=== PATIENT | male | born 1960 | race Caucasian/White ===

== ENCOUNTER 2017-10-01 10:04 | Outpatient (CLI) | payer OTHER ==
[2017-10-01 10:29] LABS: BASOPHILS % (AUTO) 0.3 % (0-1); EOSINOPHILS # (AUTO) 0.6 X10'3 (0-0.9); EOSINOPHILS % (AUTO) 6.5 % (0-6); HEMATOCRIT 46.3 % (42.0-52.0); HEMOGLOBIN 16.1 g/dl (14.0-17.9); LYMPHOCYTES % (AUTO) 24.3 % (21-51); MEAN CORPUSCULAR HEMOGLOBIN 32.3 PG (27.0-31.0); MEAN CORPUSCULAR HGB CONC 34.8 % (33.0-36.5); MEAN CORPUSCULAR VOLUME 92.9 FL (78-98); MEAN PLATELET VOLUME 7.2 FL (7.4-10.4); MONOCYTES # (AUTO) 0.7 X10'3 (0-0.9); MONOCYTES % (AUTO) 8.7 % (2-12); NEUTROPHILS # (AUTO) 5.1 X10'3 (1.8-7.7); NEUTROPHILS % (AUTO) 60.2 % (42-75); PLATELET COUNT 305 X10'3 (140-440); RED BLOOD COUNT 4.98 X10'6 (4.70-6.10); RED CELL DISTRIBUTION WIDTH 12.5 % (11.5-14.5); WHITE BLOOD COUNT 8.4 X10'3 (4.5-11.0)
[2017-10-01 10:42] LABS: ANION GAP 9 (8-16); BILIRUBIN,TOTAL 0.6 MG/DL (0.1-1.0); BLOOD UREA NITROGEN 24 MG/DL (7-18); BUN/CREATININE RATIO 21.2 (5.4-32.0); CALCIUM 9.7 MG/DL (8.5-10.1); CHLORIDE 103 MMOL/L (99-107); CREATININE 1.13 MG/DL (0.60-1.10); GLUCOSE 109 MG/DL (70-104); POTASSIUM 4.5 MMOL/L (3.5-5.1); SODIUM 141 MMOL/L (135-145); eGFR 67 ML/MIN
[2017-10-01 10:43] LABS: ALANINE AMINOTRANSFERASE 63 U/L (12-78); ALBUMIN 4.3 G/DL (3.4-5.0); ALBUMIN/GLOBULIN RATIO 1.2 (1.1-1.5); ALKALINE PHOSPHATASE 55 IU/L (46-116); ASPARTATE AMINO TRANSFERASE 27 U/L (10-37); CHOL/HDL RATIO 3.9 (0.00-4.99); CHOLESTEROL 177 MG/DL (0-200); HDL CHOLESTEROL 45 MG/DL (35-60); LDL CHOLESTEROL 115 MG/DL (50-100); TOTAL PROTEIN 7.9 G/DL (6.4-8.2); TRIGLYCERIDES 67 MG/DL (20-135)
== END 2017-10-01 23:59 | disposition home or self-care (01) ==
LOC: LAB 10:04
DX: Z00.01 Encounter for general adult medical examination with abnormal findings (principal); Z12.5 Encounter for screening for malignant neoplasm of prostate; E78.5 Hyperlipidemia, unspecified
CPT/HCPCS: 36415; 80053; 80061; 84153; 85025

== ENCOUNTER 2019-08-12 15:06 | Outpatient (CLI) | payer OTHER ==
[2019-08-12 15:40] LABS: BASOPHILS % (AUTO) 0.6 % (0-1); EOSINOPHILS # (AUTO) 0.4 X10'3 (0-0.9); EOSINOPHILS % (AUTO) 5.2 % (0-6); HEMATOCRIT 41.5 % (42.0-52.0); HEMOGLOBIN 14.7 g/dl (14.0-17.9); LYMPHOCYTES # (AUTO) 2.2 X10'3 (1.1-4.8); LYMPHOCYTES % (AUTO) 29.8 % (21-51); MEAN CORPUSCULAR HEMOGLOBIN 32.8 PG (27.0-31.0); MEAN CORPUSCULAR HGB CONC 35.5 g/dL (33.0-36.5); MEAN CORPUSCULAR VOLUME 92.5 FL (78-98); MEAN PLATELET VOLUME 7.7 FL (7.4-10.4); MONOCYTES # (AUTO) 0.8 X10'3 (0-0.9); MONOCYTES % (AUTO) 10.3 % (2-12); NEUTROPHILS % (AUTO) 54.1 % (42-75); PLATELET COUNT 255 X10'3 (140-440); RED BLOOD COUNT 4.49 X10'6 (4.70-6.10); WHITE BLOOD COUNT 7.3 X10'3 (4.5-11.0)
[2019-08-12 15:49] LABS: ALANINE AMINOTRANSFERASE 65 U/L (12-78); ALBUMIN 3.9 G/DL (3.4-5.0); ALBUMIN/GLOBULIN RATIO 1.3 (1.1-1.5); ALKALINE PHOSPHATASE 52 IU/L (46-116); ANION GAP 5 (8-16); ASPARTATE AMINO TRANSFERASE 53 U/L (10-37); BILIRUBIN,TOTAL 0.7 MG/DL (0.1-1.0); BLOOD UREA NITROGEN 20 MG/DL (7-18); BUN/CREATININE RATIO 19.4 (5.4-32.0); CALCIUM 8.7 MG/DL (8.5-10.1); CHLORIDE 104 MMOL/L (99-107); CHOL/HDL RATIO 4.2 (0.00-4.99); CHOLESTEROL 171 MG/DL (0-200); CREATININE 1.03 MG/DL (0.60-1.10); GLUCOSE 99 MG/DL (70-104); HDL CHOLESTEROL 41 MG/DL (35-60); LDL CHOLESTEROL 119 MG/DL (50-100); POTASSIUM 4.1 MMOL/L (3.5-5.1); SODIUM 138 MMOL/L (135-145); TOTAL CARBON DIOXIDE 29.5 MMOL/L (24-32); TOTAL PROTEIN 6.9 G/DL (6.4-8.2); TRIGLYCERIDES 66 MG/DL (20-135); eGFR 75 ML/MIN
== END 2019-08-12 23:59 | disposition home or self-care (01) ==
LOC: LAB 15:06
DX: Z12.5 Encounter for screening for malignant neoplasm of prostate (principal); Z00.00 Encounter for general adult medical examination without abnormal findings
CPT/HCPCS: 36415; 80053; 80061; 84153; 85025

== ENCOUNTER 2019-09-28 08:57 | Outpatient (CLI) | payer OTHER ==
[2019-09-28 11:51] LABS: CHOL/HDL RATIO 3.5 (0.00-4.99); CHOLESTEROL 160 MG/DL (0-200); HDL CHOLESTEROL 46 MG/DL (35-60); LDL CHOLESTEROL 106 MG/DL (50-100); TRIGLYCERIDES 64 MG/DL (20-135)
== END 2019-09-28 23:59 | disposition home or self-care (01) ==
LOC: LAB 08:57
DX: E78.5 Hyperlipidemia, unspecified (principal)
CPT/HCPCS: 36415; 80061

== ENCOUNTER 2020-06-23 18:45 | Emergency (ER) | payer OTHER ==
[~2020-06-23] VITALS: Ht 177.8 cm; Wt 88.6 kg
[2020-06-23 19:03] VITALS: BP 149/100
== END 2020-06-23 19:20 | disposition home or self-care (01) ==
LOC: ER 18:46
DX: S60.812A Abrasion of left wrist, initial encounter (principal); X58.XXXA Exposure to other specified factors, initial encounter; Y93.89 Activity, other specified; Y92.89 Other specified places as the place of occurrence of the external cause; Y99.8 Other external cause status
CPT/HCPCS: 99281

== ENCOUNTER 2020-10-01 12:23 | Emergency (ER) | payer OTHER ==
[~2020-10-01] VITALS: Ht 177.8 cm; Wt 90.0 kg
[~2020-10-01 12:23] MED LIST: LIDOcaine 1% 30ml preserv. free vial ONE
[2020-10-01 12:28] VITALS: BP 144/96
== END 2020-10-01 14:19 | disposition home or self-care (01) ==
LOC: ER 12:23
DX: S62.291A Other fracture of first metacarpal bone, right hand, initial encounter for closed fracture (principal); Y04.0XXA Assault by unarmed brawl or fight, initial encounter; Y93.89 Activity, other specified; Y92.89 Other specified places as the place of occurrence of the external cause; Y99.9 Unspecified external cause status
CPT/HCPCS: 26605; 73120; 73130; 99284; J2001

== ENCOUNTER 2020-10-02 16:10 | Outpatient (CLI) | payer BC ==
[2020-10-02 17:06] LABS: BASOPHILS % (AUTO) 0.4 % (0-1); EOSINOPHILS # (AUTO) 0.2 X10'3 (0-0.9); EOSINOPHILS % (AUTO) 2.4 % (0-6); HEMATOCRIT 46.9 % (42.0-52.0); LYMPHOCYTES # (AUTO) 2.1 X10'3 (1.1-4.8); LYMPHOCYTES % (AUTO) 25.6 % (21-51); MEAN CORPUSCULAR HEMOGLOBIN 32.2 PG (27.0-31.0); MEAN CORPUSCULAR HGB CONC 34.1 g/dL (33.0-36.5); MEAN CORPUSCULAR VOLUME 94.2 FL (78-98); MEAN PLATELET VOLUME 8.2 FL (7.4-10.4); MONOCYTES # (AUTO) 0.7 X10'3 (0-0.9); MONOCYTES % (AUTO) 9.3 % (2-12); NEUTROPHILS % (AUTO) 62.3 % (42-75); PLATELET COUNT 306 X10'3 (140-440); RED BLOOD COUNT 4.98 X10'6 (4.70-6.10); RED CELL DISTRIBUTION WIDTH 12.9 % (11.5-14.5); WHITE BLOOD COUNT 8.1 X10'3 (4.5-11.0)
[2020-10-02 17:26] LABS: ALANINE AMINOTRANSFERASE 46 U/L (12-78); ALBUMIN 4.3 G/DL (3.4-5.0); ALBUMIN/GLOBULIN RATIO 1.2 (1.1-1.5); ALKALINE PHOSPHATASE 57 IU/L (46-116); ANION GAP 12 (8-16); ASPARTATE AMINO TRANSFERASE 26 U/L (10-37); BILIRUBIN,TOTAL 0.7 MG/DL (0.1-1.0); BLOOD UREA NITROGEN 20 MG/DL (7-18); BUN/CREATININE RATIO 20.8 (5.4-32.0); CALCIUM 9.7 MG/DL (8.5-10.1); CHLORIDE 103 MMOL/L (99-107); CHOLESTEROL 149 MG/DL (0-200); CREATININE 0.96 MG/DL (0.60-1.10); GLUCOSE 86 MG/DL (70-104); HDL CHOLESTEROL 50 MG/DL (35-60); LDL CHOLESTEROL 92 MG/DL (50-100); SODIUM 140 MMOL/L (135-145); TOTAL CARBON DIOXIDE 24.7 MMOL/L (24-32); TOTAL PROTEIN 7.8 G/DL (6.4-8.2); TRIGLYCERIDES 80 MG/DL (20-135); eGFR 80 ML/MIN
[2020-10-04 08:35] LABS: PSA, FREE 0.3 ng/mL
== END 2020-10-02 23:59 | disposition home or self-care (01) ==
LOC: LAB 16:10
PROVIDERS: ATTEND Family Medicine
DX: E78.5 Hyperlipidemia, unspecified (principal); D64.9 Anemia, unspecified; E07.9 Disorder of thyroid, unspecified; R53.83 Other fatigue; R97.20 Elevated prostate specific antigen [PSA]
CPT/HCPCS: 36415; 80053; 80061; 84153; 84154; 84439; 84443; 85025

== ENCOUNTER 2020-11-01 09:48 | Outpatient (CLI) | payer OTHER | END 2020-11-01 23:59 | disposition home or self-care (01) | LOC: RAD 09:48 | PROVIDERS: ATTEND Orthopaedic Surgery | DX: S63.041A Subluxation of carpometacarpal joint of right thumb, initial encounter (principal); S62.231D Other displaced fracture of base of first metacarpal bone, right hand, subsequent encounter for fracture with routine healing; X58.XXXD Exposure to other specified factors, subsequent encounter; X58.XXXA Exposure to other specified factors, initial encounter; Y93.9 Activity, unspecified; Y92.89 Other specified places as the place of occurrence of the external cause; Y99.8 Other external cause status | CPT/HCPCS: 73140 ==

== ENCOUNTER → 2020-12-21 | Outpatient (CLI) | payer BC | END | disposition home or self-care (01) | LOC: RAD 09:27 | PROVIDERS: ATTEND Family Medicine | DX: M19.041 Primary osteoarthritis, right hand (principal); M79.89 Other specified soft tissue disorders | CPT/HCPCS: 73130 ==

== ENCOUNTER 2023-05-06 09:12 | Outpatient (CLI) | payer BC ==
[2023-05-06 09:47] LABS: BASOPHILS % (AUTO) 0.5 % (0-1); EOSINOPHILS # (AUTO) 0.4 X10'3 (0-0.9); EOSINOPHILS % (AUTO) 4.3 % (0-6); HEMATOCRIT 45.7 % (42.0-52.0); HEMOGLOBIN 15.7 g/dl (14.0-17.9); LYMPHOCYTES # (AUTO) 1.9 X10'3 (1.1-4.8); LYMPHOCYTES % (AUTO) 23.1 % (21-51); MEAN CORPUSCULAR HEMOGLOBIN 32.8 PG (27.0-31.0); MEAN CORPUSCULAR HGB CONC 34.3 g/dL (33.0-36.5); MEAN CORPUSCULAR VOLUME 95.5 FL (78-98); MEAN PLATELET VOLUME 7.7 FL (7.4-10.4); MONOCYTES # (AUTO) 0.6 X10'3 (0-0.9); MONOCYTES % (AUTO) 7.8 % (2-12); NEUTROPHILS # (AUTO) 5.3 X10'3 (1.8-7.7); NEUTROPHILS % (AUTO) 64.3 % (42-75); PLATELET COUNT 252 X10'3 (140-440); RED BLOOD COUNT 4.79 X10'6 (4.70-6.10); RED CELL DISTRIBUTION WIDTH 12.6 % (11.5-14.5); WHITE BLOOD COUNT 8.3 X10'3 (4.5-11.0)
[2023-05-06 10:01] LABS: ALANINE AMINOTRANSFERASE 41 U/L (12-78); ALBUMIN 3.9 G/DL (3.4-5.0); ALBUMIN/GLOBULIN RATIO 1.2 (1.1-1.5); ALKALINE PHOSPHATASE 56 IU/L (46-116); ANION GAP 11 (8-16); ASPARTATE AMINO TRANSFERASE 29 U/L (10-37); BILIRUBIN,TOTAL 0.6 MG/DL (0.1-1.0); BLOOD UREA NITROGEN 15 MG/DL (7-18); BUN/CREATININE RATIO 16.5 (10.0-20.0); CALCIUM 9.1 MG/DL (8.5-10.1); CHLORIDE 101 MMOL/L (99-107); CHOL/HDL RATIO 3.1 (0.00-4.99); CHOLESTEROL 139 MG/DL (0-200); CREATININE 0.91 MG/DL (0.60-1.10); GLUCOSE 116 MG/DL (70-104); HDL CHOLESTEROL 45 MG/DL (35-60); LDL CHOLESTEROL 77 MG/DL (50-100); SODIUM 136 MMOL/L (135-145); TOTAL CARBON DIOXIDE 24.5 MMOL/L (24-32); TOTAL PROTEIN 7.1 G/DL (6.4-8.2); TRIGLYCERIDES 62 MG/DL (20-135); eGFR 85 ML/MIN
== END 2023-05-06 23:59 | disposition home or self-care (01) ==
LOC: LAB 09:12
PROVIDERS: ATTEND Physician Assistant
DX: Z00.01 Encounter for general adult medical examination with abnormal findings (principal); I10 Essential (primary) hypertension; E78.5 Hyperlipidemia, unspecified; N40.1 Benign prostatic hyperplasia with lower urinary tract symptoms
CPT/HCPCS: 36415; 80053; 80061; 84153; 85025

== ENCOUNTER 2023-09-18 08:27 | Emergency (ER) | payer BC ==
[~2023-09-18] VITALS: Ht 170.2 cm; Wt 84.3 kg
[2023-09-18 08:29] VITALS: BP 138/85; PULSE 72; RESP 16; TEMP 98.6; O2SAT 98
[2023-09-18] MEDS ORDERED: CIPR2.5D21 EACHEYE (09:00)
[2023-09-18] MEDS: ciprofloxacin 0.3% 2.5ml ophthalmic solution EACHEYE ONE (09:28)
== END 2023-09-18 09:33 | disposition home or self-care (01) ==
LOC: ER 08:28
DX: H10.023 Other mucopurulent conjunctivitis, bilateral (principal); Z79.2 Long term (current) use of antibiotics
CPT/HCPCS: 99283

== ENCOUNTER 2023-09-28 08:28 | Emergency (ER) | payer BC ==
[~2023-09-28] VITALS: Ht 177.8 cm; Wt 66.9 kg
[2023-09-28 08:30] VITALS: BP 135/86; PULSE 75; RESP 18; TEMP 97.8; O2SAT 98
== END 2023-09-28 11:35 | disposition home or self-care (01) ==
LOC: ER 08:29
DX: H69.82 Other specified disorders of Eustachian tube, left ear (principal); Z79.2 Long term (current) use of antibiotics; Z79.899 Other long term (current) drug therapy
CPT/HCPCS: 99282

== ENCOUNTER 2023-10-22 15:12 | Emergency (ER) | payer BC ==
[~2023-10-22] VITALS: Ht 170.2 cm; Wt 82.0 kg
[2023-10-22 15:32] VITALS: BP 129/72; PULSE 75; RESP 20; TEMP 97.8; O2SAT 95
[2023-10-22] MEDS: mineral oil 10ml sterile, topical TP ONE (16:35)
== END 2023-10-22 17:27 | disposition home or self-care (01) ==
LOC: ER 15:13
DX: H61.23 Impacted cerumen, bilateral (principal)
CPT/HCPCS: 99282; 99283

== ENCOUNTER 2025-02-25 10:04 | Emergency (ER) | payer BC ==
[~2025-02-25] VITALS: Ht 170.2 cm; Wt 86.8 kg
[2025-02-25 10:08] VITALS: BP 143/99; PULSE 79; RESP 16; TEMP 97.7; O2SAT 98
--- NOTE | 2025-02-25 10:39 | Physician Documentation ---
History of Present Illness ~ Chief Complaint: Toe pain Stated Complaint: GLASS IN TOE Time Seen by MD: 10:23 OK to notify your PCP?: Yes Primary Medical Doctor: Dr. Jacobo Winters Source: patient Mode of Arrival: POV Exam Limitations: no limitations HPI 64-year-old male with chief complaint pain on the plantar surface of his distal 3rd toe which started a few days ago. He states he believes that there is glass in the toe as he was working on some glass in his garage about a week ago and has been cleaning it up over the past week and states that they are small glass shards on the floor in his garage that easily could have gotten in his toe. He states the pain is worse with any direct pressure to the area. Last tetanus was within last 10years. Tetanus witin 5 years: Yes Medication Reconciliation Allergies: Coded Allergies: No Known Allergies (Unverified , 02/25/25) Past Medical History Past Medical History: No Pertinent History Past Surgical History: noncontributory Drug Use: none Lives In: Home Occupation: employed Review of Systems All Other Systems at this time: Reviewed and Negative Physical Exam Vital Signs: Temperature: 97.7, Source: Temporal, Heart Rate: 79, Respiratory Rate: 16, BP: 143/99, Pulse Oximetry: 98, Weight: 86.750 Oxygen Flow Rate: 0 Physical Exam General Appearance: Alert, WD/WN. NAD. HEENT: NCAT, PERRL, EOMI. Neck: Supple, trachea midline. Cardiovascular: RRR. No m/r/g. Lungs: CTAB. Breathing unlabored Extremities: RIGHT 3RD TOE PLANTAR SURFACE THERE IS A 3MM SMALL OPENING IN THE SKIN ON THE DISTAL ASPECT OF THE TOE, NO BLEEDING, NO PALPABLE FOREIGN BODY, AREA IS TTP. NO SURROUNDING ERYTHEMA. Neurological: Alert and oriented x4, normal gait. Psychiatric: Affect congruent with mood. Progress Progress Note XRAY NEGATIVE FOR FOREIGN BODY Results/Orders Results/Orders Orders - CHRISTIAN VELOZ Toe(S) (02/25/25 10:31) Completed Orders - CHRISTIAN VELOZ Toe(S) (02/25/25 10:31) Vital Signs 02/25/25 10:08 Temp 97.7 Pulse 79 Resp 16 B/P (MAP) 143/99 Pulse Ox 98 O2 Flow Rate 0 Medical Decision Making Toe Diff Dx:Considerations: Include: Abrasion, Cellulitis, Contusion, Dislocation, Felon, Fracture, Hematoma, Laceration, Neurovascular injury, Open fracture, Paronychia, Subungual hematoma Departure Time of Disposition: 10:38 Disposition: 01 HOME / SELF CARE / HOMELESS Impression: Primary Impression: Pain of toe Qualified Codes: M79.674 - Pain in right toe(s) Condition: Stable (BE LIKE) Discharge Instructions: Hand or Foot Foreign Body, Adult Additional Instructions: WE MUTUALLY AGREED BEST PLAN OF ACTION AT THIS TIME SINCE WE CAN NOT SEE ANY FOREIGN BODY IS TO COVER WITH ANTIBIOTICS, SOAK IN EPSOM SALT AND MONITOR. IF INCREASING PAIN, SWELLING, REDNESS, RETURN TO ER. Referrals: NO PRIMARY CARE PROVIDER (PCP) Prescriptions Cephalexin*Monohydrate* (Keflex*) 500 Mg Capsule 1 CAP PO Q8H for 7 Days, #21 CAP Prov: CHRISTIAN VELOZ 02/25/25 Education Educated: Patient Educated regarding: diagnosis, treatment, need for follow up Signature Scribe Signature: X Attestation: CHRISTIAN Mitchell Feb 25, 2025 10:38
[2025-02-25] MEDS ORDERED: CEPH-585 PO (11:17)
--- NOTE | 2025-02-25 11:21 | RADIOLOGY REPORT ---
DI TOE(S), INDICATION: foreign body right 3rd toe TECHNICAL DATA: Frontal view of the right foot and lateral and oblique views of the 3 toe were obtain ed. COMPARISON: None FINDINGS: No fracture is identified. Joint spaces are maintained. Alignment is anatomic. Soft tissues are withi n normal limits. IMPRESSION: No acute fracture or dislocation of the third toe.
== END 2025-02-25 11:55 | disposition home or self-care (01) ==
LOC: ER 10:04
DX: M79.674 Pain in right toe(s) (principal)
CPT/HCPCS: 73660; 99283